=== PATIENT | female | born 1995 | race Caucasian/White ===

== ENCOUNTER 2016-10-02 10:06 | Emergency (ER) | payer OTHER ==
[~2016-10-02] VITALS: Wt 59.9 kg
[~2016-10-02 10:06] MED LIST: ALLERGY PILL; AMOXICILLIN500 MG PO; AMOXIL250 M1 PO; ANTIVERT/2525 M1 PO; ATARAX25 MG PO; BACTRIM DS 8001 TA1 PO; CIPROFLOXACIN500 MG PO; CYCLOBENZAPRINE10 MG PO; DIFLUCAN150 MG PO; KEFLEX500 MG PO; KENALOG0.1% TP; LIDEX0.05% T; LOMOTIL 0.025 M1 TA1 PO; MED FOR SLEEP; MIRALAX POWDER17 G1 PO; MOTRIN400 MG PO; MOTRIN800 MG PO; MULTIPLE VITAMI1 CAP PO; MULTIVITAMINS1 EACH PO; Motrin,Rufen800 MG PO; NAPROSYN500 MG PO; NITROFURANTOIN100 MG PO; NKHM; NKHM PO; NO DAILY MEDS; PRE-NATAL1 TA1 PO; PREDNICOT20 MG PO; PREDNISONE10 MG PO; SLEEP MED; ZITHROMAX250 MG PO; ZOFRAN ODT4 MG SL; ZOFRAN4 MG PO; ZYRTEC10 MG PO
[2016-10-02 10:18] VITALS: BP 111/64
[2016-10-02] MEDS ORDERED: PNV PRENATAL P1 EACH PO (10:18)
[2016-10-02] MEDS ORDERED: MYCOLOG CREAM 115 GM T (10:26)
== END 2016-10-02 10:48 | disposition home or self-care (01) ==
LOC: ED 10:06
DX: O99.713 Diseases of the skin and subcutaneous tissue complicating pregnancy, third trimester (principal); L30.9 Dermatitis, unspecified; Z79.899 Other long term (current) drug therapy; Z3A.28 28 weeks gestation of pregnancy

== ENCOUNTER 2018-04-10 05:27 | Emergency (ER) | payer MEDICAID ==
[~2018-04-10] VITALS: Ht 160 cm; Wt 56.7 kg
[~2018-04-10 05:27] MED LIST changes: +MYCOLOG CREAM 115 GM T; +PNV PRENATAL P1 EACH PO; +ZANTAC 150150 MG PO
[2018-04-10 05:29] VITALS: BP 11/71
[2018-04-10 06:04] LABS: BILIRUBIN NEGATIVE (NEGATIVE); BLOOD 3+ (NEGATIVE); CLARITY CLOUDY (CLEAR); COLOR YELLOW (YELLOW); GLUCOSE NEGATIVE (NEGATIVE); KETONE NEGATIVE (NEGATIVE); LEUKO ESTERASE 2+ (NEGATIVE); NITRITE NEGATIVE (NEGATIVE); PH 5.5 (5.0-9.0); SPECIFIC GRAVITY >= 1.030 (1.005-1.030); UROBILINOGEN 0.2 E.U./dl (0.2-1.0)
[2018-04-10 06:19] LABS: RBC TNTC rbc/hpf (0-2); WBC TNTC wbc/hpf (0-5)
[2018-04-10 06:20] LABS: BACTERIA 3+
[2018-04-10] MEDS ORDERED: SEPTDS PO (06:56)
== END 2018-04-10 07:10 | disposition home or self-care (01) ==
LOC: ED 05:27
PROVIDERS: Student in an Organized Health Care Education/Training Program
DX: N39.0 Urinary tract infection, site not specified (principal); Z79.899 Other long term (current) drug therapy

== ENCOUNTER 2020-09-09 15:59 | Emergency (ER) | payer BC ==
[~2020-09-09] VITALS: Ht 160 cm; Wt 67.1 kg
[~2020-09-09 15:59] MED LIST changes: +SEPTDS PO
[2020-09-09 16:05] VITALS: BP 133/77
[2020-09-09 16:19] LABS: BILIRUBIN Negative (Negative); BLOOD Negative (Negative); CLARITY Clear (Clear); COLOR Yellow (Yellow); GLUCOSE Negative (Negative); KETONE Negative (Negative); LEUKO ESTERASE Trace (Negative); NITRITE Negative (Negative); PH 5.5 (4.5-8.0); SPECIFIC GRAVITY <= 1.005 (1.001-1.030); UROBILINOGEN 0.2 E.U./dl (0.0-1.0)
[2020-09-09 16:25] LABS: BACTERIA 2+; RBC 0-2 rbc/hpf (0-2)
[2020-09-09] MEDS ORDERED: VISTARIL25 M2 PO (17:32)
== END 2020-09-09 17:49 | disposition home or self-care (01) ==
LOC: ED 15:59
PROVIDERS: Student in an Organized Health Care Education/Training Program
DX: F41.9 Anxiety disorder, unspecified (principal); R42 Dizziness and giddiness; R53.1 Weakness; R25.1 Tremor, unspecified; Z79.2 Long term (current) use of antibiotics; Z79.899 Other long term (current) drug therapy

== ENCOUNTER 2021-05-18 10:24 | Emergency (ER) | payer SELFPAY ==
[~2021-05-18] VITALS: Ht 157.4 cm; Wt 65.8 kg
[~2021-05-18 10:24] MED LIST changes: +VISTARIL25 M2 PO
[2021-05-18 10:34] VITALS: BP 119/73
[2021-05-18 11:03] LABS: BILIRUBIN Negative (Negative); BLOOD Negative (Negative); CLARITY Clear (Clear); COLOR Yellow (Yellow); GLUCOSE Negative (Negative); KETONE Negative (Negative); LEUKO ESTERASE Negative (Negative); NITRITE Negative (Negative); SPECIFIC GRAVITY <= 1.005 (1.001-1.030); UROBILINOGEN 0.2 E.U./dl (0.0-1.0)
[2021-05-18 11:13] LABS: HEMATOCRIT 40.7 % (37.0-47.0); MEAN CELL VOLUME 90.2 fl (81.0-99.0); MEAN CORPUSCULAR HGB 30.4 pg (27.0-31.0); MEAN CORPUSCULAR HGB CONC 33.7 g/dl (33.0-37.0); MEAN PLATELET VOLUME 11.1 fl (9.6-12.3); PLATELET COUNT AUTOMATED 160 10*3/uL (130-400); RED BLOOD COUNT 4.51 10*6/uL (4.10-5.10); RED CELL DISTRI WIDTH 11.7 % (0-14.5); WHITE BLOOD COUNT 3.5 10*3/uL (4.8-10.8)
[2021-05-18 11:14] LABS: MANUAL DIFF REFLEX YES
[2021-05-18 11:19] LABS: WBC 0-2 wbc/hpf (0-5)
[2021-05-18 11:25] LABS: ALKALINE PHOSPHATASE 60 U/L (45-117); BUN 8 mg/dl (7-24); CHLORIDE 107 mmol/L (98-107); CREATININE 0.66 mg/dL (0.55-1.02); POTASSIUM 3.6 mmol/L (3.5-5.1); SGOT/AST 14 IU/L (3-35); SGPT/ALT 23 U/L (12-78); SODIUM 139 mmol/L (136-145); TOTAL PROTEIN 8.2 gm/dL (6.4-8.2)
[2021-05-18 11:38] LABS: BASOPHILS 1 % (0-1); PLATELET SUFFICIENCY NORMAL (NORMAL); TOTAL CELLS COUNTED 100 #CELLS
== END 2021-05-18 11:45 | disposition home or self-care (01) ==
LOC: ED 10:24
PROVIDERS: Student in an Organized Health Care Education/Training Program
DX: F41.9 Anxiety disorder, unspecified (principal); Z79.899 Other long term (current) drug therapy